=== PATIENT | female | born 1975 | race Caucasian/White ===

== ENCOUNTER 2025-03-18 14:54 | Outpatient (AMB) | payer OTHER, SELFPAY ==
--- NOTE | 2025-03-18 14:59 | MHC.PC.OV ---
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 Required: No Accompanied by: Self / Same As Patient Allergies doxycycline Adverse Reaction (Intermediate, Verified 03/18/25 15:04) Hives Penicillins Adverse Reaction (Intermediate, Verified 03/18/25 15:04) Hives sulfamethoxazole (From Bactrim) Adverse Reaction (Intermediate, Verified 03/18/25 15:04) Hives trimethoprim (From Bactrim) Adverse Reaction (Intermediate, Verified 03/18/25 15:04) Hives Medication List - Last Reconciled 03/18/25 by Naa Bragg MD bupropion HCl XL (Wellbutrin XL) 450 mg PO DAILY etonogestrel-ethinyl estradiol 0.12-0.015 mg/24 hr vag rings vaginal valacyclovir 1,000 mg PO DAILY valacyclovir 2,000 mg PO BID PRN Tobacco use date assessed: 03/18/25 Dental Screening Dental Screen Date: 03/18/25 Did you have a dental visit in the last 12 months?: Yes Did you have a dental problem in the last 6 months where you did not have access to dental care?: No Was dental information given to patient?: Patient has dentist HPI HPI Comments History of Present Illness Details The patient is a 49 year [facility] Acute Sinusitis: The patient reports upper respiratory symptoms that began after a trip to [place] in late January, approximately six weeks ago. She describes feeling congested and having bloody, dark yellow, and green nasal discharge, with no associated chest pain on deep inspiration. She has tried saline rinses and has OTC meds for her symptoms. Depression: The patient reports her mood is very good, describing a huge shift since January. She is currently taking bupropion 150 mg, three tablets daily, which she obtains through a service called [employer]. The medication is working well for her. Thyroid Nodule: The patient has a history of a thyroid nodule. Last ultrasound done at [facility]. [facility] Medical History (Updated 03/18/25 @ 18:21 by Naa Bragg MD) Depression Thyroid nodule Vitamin D deficiency Iron deficiency anemia Surgical History (Updated 03/18/25 @ 15:09 by Naa Bragg MD) Previous section Hx of gastric bypass H/O breast augmentation Hx of appendectomy History of colonoscopy (~01/23/17) Family History (Updated 03/18/25 @ 15:06 by Naa Bragg MD) Maternal Grandmother Breast cancer Mother Breast cancer Other CKD (chronic kidney disease), stage IV Coronary artery disease Diabetes mellitus type 2 in nonobese Osteoporosis Primary hypertension Social History Housing: House Patient Tobacco Use Status: Never used Tobacco e-Cigarette/Vaping Use: Never Used service: No Current occupational status: employed Current occupation: RN Questionnaire PHQ-9 Over the last 2 weeks, how often have you been bothered by any of the following problems? 1. Little interest or pleasure in doing things: not at all 2. Feeling down, depressed, or hopeless: not at all 3. Trouble falling or staying asleep, or sleeping too much: not at all 4. Feeling tired or having little energy: not at all 5. Poor appetite or overeating: not at all 6. Feeling bad about yourself - or that you are a failure or have let yourself or your family down: not at all 7. Trouble concentrating on things, such as reading the newspaper or watching television: not at all 8. Moving or speaking so slowly that other people could have noticed. Or the opposite - being so fidgety or restless that you have been moving around a lot more than usual: not at all 9. Thoughts that you would be better off or of hurting yourself in some way: not at all Total score: 0 Depression Screening Interpretation: Negative Depression Screening Done: Yes 09603 - PHQ-9 Billing: Yes Source: Developed by Drs. Zeeshan Ferguson, Joanne Guzman, Real Jordan and colleagues, with an educational spike from [employer]. Thrive Questionnaire Date Thrive assessed: 03/17/25 I am a: Patient What is your living situation today?: I have a steady place to live Within the past 12 months, did the food you bought not last and you didn't have the money to get more?: Never true Within the past 12 months, did you worry whether your food would run out before you got money to buy more?: Never true Do you have trouble paying for medicines?: No Do you have trouble getting transportation to medical appointments?: No Do you have trouble paying your heating and electricity bill?: No Do you have trouble taking care of your child, family member or friend?: No Do you have trouble with day-to-day activities such as bathing, preparing meals, shopping, managing finances, etc.?: No Are you currently unemployed and looking for a job?: No Are you interested in more education?: No Please select the resources that you would like help with: None Currently or been in a relationship where the following occur: No concerns reported THRIVE Score: 0 AUDIT C Alcohol Use Questionnaire (AUDIT-C) 1. How often do you have a drink containing alcohol?: 2-4 times a month 2. How many drinks containing alcohol do you have on a typical day when you are drinking?: 1 or 2 3. How often do you have six or more drinks on one occasion?: Never Total Score: 2 NAOMI-7 AMB Questionnaire NAOMI-7 Feeling nervous, anxious, or on edge: 0 = Not at all Not being able to stop or control worryin = Not at all Worrying too much about different things: 0 = Not at all Trouble relaxin = Not at all Being so restless that it is hard to sit still: 0 = Not at all Becoming easily annoyed or irritable: 0 = Not at all Feeling afraid as if something awful might happen: 0 = Not at all Total NAOMI-7 score (0-4 normal; 5-9 mild; 10-14 moderate; 15-21 severe): 0 Source: Developed by Drs. Zeeshan Ferguson, Joanne Guzman, Real Jordan and colleagues, with an educational spike from [employer]. Review of Systems Narrative Review of Systems - General: Reports good energy. - HEENT: Reports ear pain, nasal congestion, and bloody, dark yellow, and green nasal discharge for approximately six weeks. - Respiratory: Reports feeling congested but denies coughing up anything and denies pleuritic chest pain. - Psychiatric: Reports very good mood. Physical exam (Primary Care) Vital Signs: Last Vital Signs Temp 97.1 F 03/18/25 15:02 Pulse 83 03/18/25 15:02 Resp 16 03/18/25 15:02 BP 102/70 03/18/25 15:02 Pulse Ox 97 03/18/25 15:02 Oxygen Delivery Method Room Air 03/18/25 15:02 BMI result Body Mass Index 29.7 Tobacco/Smoking Status: Tobacco use Status Tobacco use date assessed 03/18/25 03/18/25 15:08 Patient Tobacco Use Status Never used Tobacco 03/18/25 15:08 e-Cigarette/Vaping Use Never Used 03/18/25 15:08 PHQ-9: PHQ-9 Score PHQ-9: Total score 0 03/18/25 15:08 Depression Screening Interpretation: Negative Thrive Assessment: Date of Thrive Assessment Date Thrive assessed 03/17/25 03/18/25 15:08 Currently or been in a relationship where the following occur: No concerns reported Narrative Physical Exam - Vitals: Weight is 157 lbs. - Gen: NAD - HEENT: Left and right tympanic membranes are clear with no erythema or signs of infection. - Pulmonary/Chest: Coarse breath sounds auscultated on the left side. - Cardiovascular: Normal rhythm. A soft heart murmur was auscultated. Coding Level of Care Code Est Pt Level 4 (07600) Add On Problem Visit Only Diagnoses Iron deficiency anemia, unspecified iron deficiency anemia type D50.9 Iron deficiency anemia type: unspecified iron deficiency Thyroid nodule E04.1 Depression, unspecified depression type F32.A Depression Type: unspecified Additional Codes PHQ-9 - 77405 - PHQ-9 Billing: Yes ([id number]) Assessment & Plan Assessment & Plan (1) Iron deficiency anemia: Code(s): D50.9 - Iron deficiency anemia, unspecified Category: Medical Qualifiers: Iron deficiency anemia type: unspecified iron deficiency Qualified Code(s): D50.9 - Iron deficiency anemia, unspecified (2) Thyroid nodule: Code(s): E04.1 - Nontoxic single thyroid nodule Category: Medical (3) Depression: Code(s): F32.A - Depression, unspecified Category: Medical Qualifiers: Depression Type: unspecified Qualified Code(s): F32.A - Depression, unspecified Plan Assessment and Plan 1. Acute Sinusitis - The patient presents with a six-week history of congestion with purulent and bloody nasal discharge following a trip. - Plan is to prescribe a course of azithromycin (Z-Arie) due to patient's numerous antibiotic allergies - The patient will be instructed to monitor her symptoms and to follow up if there is no improvement, as a second course of antibiotics may be necessary. 2. Depression - The patient's mood is significantly improved and stable on her current medication regimen of bupropion 450 mg daily. - The medication is effective. 3. Thyroid Nodule - The patient has a known history of a thyroid nodule but is unsure of the date of her last ultrasound. - Plan is to obtain her prior medical records to determine the last imaging date and establish the appropriate follow-up interval. 4. Health Maintenance - The patient is due for routine screenings. - A full lab panel will be ordered to be completed a few days before her physical exam in June. - She is due for her mammogram in August 2025 - She will continue her Celebrate bariatric multivitamin with iron. - She is up to date with her ENGRA[employer]ING [employer] OPER[employer] care. Plan - Prescribed Azithromycin (Z-Arie) for acute sinusitis. - Instructed the patient to monitor symptoms and follow up if her discolored nasal discharge persists, as a second round of antibiotics may be needed. - Renewed prescription for Bupropion 150 mg, three tablets daily, for a 90-day supply to be sent to [facility] on [address]. - Will request prior medical records to check the date of the last thyroid ultrasound for the thyroid nodule. - Ordered a full laboratory panel to be completed a few days before her next physical exam. - Advised patient to continue taking her Celebrate bariatric multivitamin with extra iron. - Patient to schedule mammogram, which is due in August. - Follow up in June 2025 for physical Patient Instructions - Please take the Azithromycin (Z-Arie) as prescribed to treat the likely sinus infection. - Let us know if you are still having discolored nasal discharge after finishing the antibiotic, as you may need another round of medication. - You can continue to use saline nasal rinses to help with congestion. - Please complete the lab work I ordered a few days before your physical exam. Orders: Orders Comprehensive Met. Panel Today D50.9 - Iron deficiency anemia, unspecified, E55.9 - Vitamin D deficiency, unspecified Magnesium Today D50.9 - Iron deficiency anemia, unspecified, E55.9 - Vitamin D deficiency, unspecified Vitamin B12 Today D50.9 - Iron deficiency anemia, unspecified, E55.9 - Vitamin D deficiency, unspecified IRON PROFILE Today D50.9 - Iron deficiency anemia, unspecified, E55.9 - Vitamin D deficiency, unspecified Ferritin Today D50.9 - Iron deficiency anemia, unspecified, E55.9 - Vitamin D deficiency, unspecified Folate Today D50.9 - Iron deficiency anemia, unspecified, E55.9 - Vitamin D deficiency, unspecified Complete Blood Count Auto Diff Today D50.9 - Iron deficiency anemia, unspecified, E55.9 - Vitamin D deficiency, unspecified Lipid Panel Today D50.9 - Iron deficiency anemia, unspecified, E55.9 - Vitamin D deficiency, unspecified TSH reflex Free T4 Today D50.9 - Iron deficiency anemia, unspecified, E55.9 - Vitamin D deficiency, unspecified Vitamin D 25-OH Total Today D50.9 - Iron deficiency anemia, unspecified, E55.9 - Vitamin D deficiency, unspecified Medications: New bupropion HCl XL (Wellbutrin XL) 450 mg (3 x 150 mg) PO DAILY 270 tabs 3RF [celebrate bariatric with iron] PO azithromycin For 250 mg dose pack: take 500 mg today (day 1), then 250 mg for 4 days (days 2-5) PO 6 tabs 0RF
[2025-03-18 15:02] VITALS: BP 102/70; PULSE 83; RESP 16; TEMP 36.2; O2SAT 97; BMI 29.7
--- OUTSIDE RECORDS SUMMARY | 2025-03-18 19:16 | XMS_ITS ---
Author Name [facility] Organization Unknown Care Team Organization Name Specialty Phone Email Start Date End [facility] GISELLE CORDERO Primary Care 06/10/202206/10
== END 2025-03-18 15:49 | disposition home or self-care (01) ==
PROVIDERS: PCP Internal Medicine; Visit Provider Internal Medicine
DX: D50.9 Iron deficiency anemia, unspecified (principal); E04.1 Nontoxic single thyroid nodule; F32.A Depression, unspecified

== ENCOUNTER → 2025-03-18 14:54 | Outpatient (BNVA) | payer OTHER, SELFPAY | PROVIDERS: PCP Internal Medicine; Visit Provider Internal Medicine | DX: D50.9 Iron deficiency anemia, unspecified (principal); E04.1 Nontoxic single thyroid nodule; F32.A Depression, unspecified; J01.90 Acute sinusitis, unspecified; Z13.31 Encounter for screening for depression | CPT/HCPCS: 96127 ==